=== PATIENT | male | born 1955 | race Caucasian/White ===

== ENCOUNTER 2017-02-18 12:31 | Day surgery (SDC) | payer OTHER ==
[2017-02-15 13:49] LABS: BASOPHILS 0.3 %; BASOPHILS ABSOLUTE 0.02 10/3/uL (0.0-0.16); EOSINOPHILS 1.6 %; EOSINOPHILS ABSOLUTE 0.12 10/3/uL (0.0-0.53); HEMATOCRIT 40.5 % (40.0-51.0); HEMOGLOBIN 13.8 g/dL (13.6-17.8); IMMATURE GRANULOCYTES 0.3 %; IMMATURE GRANULOCYTES ABSOLUTE 0.02 10/3/uL (0.0-0.11); LYMPHOCYTES ABSOLUTE 1.59 10/3/uL (0.67-4.30); MEAN CORPUS HGB CONC 34.1 g/dL (32.0-36.0); MEAN CORPUSCULAR HEMOGLOB 31.4 pg (26.0-34.0); MEAN PLATELET VOLUME 10.2 fL (9.2-13.0); MONOCYTES 7.7 %; MONOCYTES ABSOLUTE 0.58 10/3/uL (0.21-1.20); NEUTROPHILS 69.1 %; NEUTROPHILS ABSOLUTE 5.23 10/3/uL (2.02-8.40); PLATELET COUNT 314 10/3/uL (150-400); RBC DISTRIBUTION WIDTH 14.1 % (12.0-16.0); WHITE BLOOD CELLS 7.6 10/3/uL (4.5-10.5)
[2017-02-15 13:50] LABS: MANUAL DIFF NO %
[2017-02-15 14:04] LABS: BUN (BLOOD UREA NITROGEN) 16 MG/DL (6-23); CHLORIDE, SERUM 105 MMOL/L (96-112); CO2 (CARBON DIOXIDE) 33 MMOL/L (24-34); CREATININE 1.23 MG/DL (0.70-1.30); GFR AFRICAN AMERICAN 72 ML/MIN (>=60); GFR NON AFRICAN AMERICAN 62 ML/MIN (>=60); GLUCOSE, SERUM 135 MG/DL (60-99); POTASSIUM, SERUM 4.8 MMOL/L (3.5-5.3); SODIUM, SERUM 140 MMOL/L (135-148)
--- NOTE | ~2017-02-18 | OP ---
Record Of Operation [facility] [address] [place] [address] NAME: RADHA DENNY : 51 STATUS : REG [facility]#: [id number] AGE: 61 ADM/REG DATE : 02/18/17 MR#: [id number] REPORT SERV DATE: 02/18/17 DICTATED BY: INOCENTE ANAND DATE: 02/18/17 REPORT STATUS : Draft TRANSCRIBED BY: MODL DATE: 02/18/17 DATE OF PROCEDURE: 02/18/2017 PROCEDURE: Microdirect laryngoscopy with biopsy, right base of tongue mass. PREOPERATIVE DIAGNOSIS: Right base of tongue mass. POSTOPERATIVE DIAGNOSIS: Squamous cell carcinoma, right base of tongue. ANESTHESIA: General endotracheal. COMPLICATION: None. FINDINGS: The patient was taken to the OR, placed in supine position. Then was anesthetized, prepped, and draped in standard fashion. A direct laryngoscopy was performed with a Dedo laryngoscope. The vallecula was noted to be apparently free of tumor as well as left base of tongue. The patient had a large bulging right base of tongue, but no ulceration. The tumor was relatively soft. Right and left true and false vocal cords noted to be normal. The vallecula was suspended and multiple biopsies obtained. Frozen section consistent with squamous cell carcinoma. The patient was awakened, extubated, and taken to the recovery room in good condition. JERALD/SUE Inocente Anand M.D. / [id number] CC: Elton Triplett M.D.
[~2017-02-18 12:31] MED LIST: GLUCOPHAGE1000 MG PO; NEUR300 PO; PAX20 PO; PRIN20 PO; Z300 PO
== END 2017-02-18 17:37 | disposition home or self-care (01) ==
LOC: SDC 12:31
PROVIDERS: Otolaryngology
PROC: 0CBM8ZX Excision of Pharynx, Via Natural or Artificial Opening Endoscopic, Diagnostic (ICD-10-PCS; principal; 2017-02-18 14:00)
DX: C10.9 Malignant neoplasm of oropharynx, unspecified (principal); I10 Essential (primary) hypertension; E11.9 Type 2 diabetes mellitus without complications; G47.30 Sleep apnea, unspecified; Z88.1 Allergy status to other antibiotic agents; F41.9 Anxiety disorder, unspecified; Z87.891 Personal history of nicotine dependence
CPT/HCPCS: 80048; 82962; 85025; 88305; 88331; 88342; 93005; J0690; J2250; J2370; J2405; J2710; J3010